=== PATIENT | female | born 1980 | race Caucasian/White ===

== ENCOUNTER 2023-10-18 06:00 | Inpatient (IN) | payer OTHER ==
[2023-10-18] MEDS: ELECTROLYTE-148 SOLN 500 ML IV ONE (06:20)
[2023-10-18 06:38] VITALS: BMI 35.0
[2023-10-18] MEDS: CITRIC ACID/SODIUM CITRATE 30 ML UNIT-DOSE CUP PO ONE (07:15)
[2023-10-18] MEDS: ELECTROLYTE-148 SOLN 1,000 ML IV SCH (07:21)
[2023-10-18] MEDS ORDERED: METOCLOPRAMIDE HCL INJECTION 10 MG/2 ML VIAL ONE (07:51)
[2023-10-18] MEDS ORDERED: OXYTOCIN 10 UNITS/ML VIAL ONE (07:51)
[2023-10-18] MEDS ORDERED: ceFAZolin SODIUM 1 GM VIAL ONE (07:51)
[2023-10-18] MEDS ORDERED: ONDANSETRON 4 MG/2 ML VIAL ONE (07:51)
[2023-10-18] MEDS ORDERED: KETOROLAC TROMETHAMINE 30 MG/1 ML VIAL ONE (07:51)
[2023-10-18] MEDS ORDERED: PHENYLEPHRINE HCL 10 MG/1 ML SINGLE DOSE VIAL ONE (07:52)
[2023-10-18] MEDS ORDERED: SODIUM CHLORIDE 0.9% P/F 10 ML VIAL IJ ONE (07:52)
[2023-10-18] MEDS ORDERED: morphine SULFATE/PF 1 MG/2 ML (2cc Syringe - QUVA) ONE (07:56)
[2023-10-18] MEDS ORDERED: FENTANYL CITRATE/PF 50 MCG/ML VIAL ONE (07:56)
[2023-10-18] MEDS ORDERED: IBUPROFEN 800 MG/8 ML IJ IVPB PRN (09:46)
[2023-10-18] MEDS ORDERED: ONDANSETRON 4 MG/2 ML VIAL IVPB PRN (09:46)
[2023-10-18] MEDS ORDERED: ACETAMINOPHEN INJECTION 100 ML IVPB ONE (10:32)
[2023-10-18] MEDS: ACETAMINOPHEN 1000 MG/100 ML BAG IVPB SCH (10:39)
[2023-10-18] MEDS ORDERED: OXYTOCIN 20 UNITS in 0.9% NS 20 UNIT/1,000 ML INFUS.BAG IV ONE (11:44)
[2023-10-18] MEDS: OXYTOCIN 20 UNITS in 0.9% NS 20 UNIT/1,000 ML INFUS.BAG IV SCH (11:50)
[2023-10-18] MEDS: CEFAZOLIN SODIUM 2 GM in DEXTROSE 5%-WATER 100 ML IVPB SCH (15:49)
[2023-10-18] MEDS: SENNOSIDES/DOCUSATE COMBO (SENNA PLUS) TABLET (UD) PO SCH (22:13)
[2023-10-19] MEDS: IBUPROFEN 600 MG TABLET (FP) PO PRN (04:34)
[2023-10-19 06:33] LABS: BASO % 0.3 % (0-2.0); HEMATOCRIT 27.9 % (32.4-45.2); HEMOGLOBIN 9.7 GM/dL (10.7-15.3); MCH 31.3 pg (25.7-33.7); MCHC 34.8 g/dl (32.0-36.0); MEAN CELL VOLUME 90.1 fl (80-96); MEAN PLT VOLUME 8.9 fl (7.5-11.1); MONO % 8.3 % (3.8-10.2); NEUT % 73.4 % (42.8-82.8); PLATELET COUNT 162 10^3/uL (134-434); RBC 3.09 M/mm3 (3.60-5.2); RDW 13.9 % (11.6-15.6); WHITE BLOOD COUNT 10.8 K/mm3 (4.0-10.0)
[2023-10-19] MEDS ORDERED: oxyCODONE HCL 5 MG TABLET PO PRN (08:00)
[2023-10-19] MEDS ORDERED: BISACODYL 10 MG SUPP.RECT RC PRN (09:46)
[2023-10-19] MEDS: ENOXAPARIN NA (PORCINE) 40 MG/0.4 ML DISP.SYRIN SQ SCH (10:32)
[2023-10-19] MEDS: ACETAMINOPHEN 325 MG TABLET (FP) PO SCH (10:33)
[2023-10-19] MEDS: DIPHTH,PERTUSS(ACELL),TET 0.5 ML DISP.SYRIN IM ONE (10:33)
[2023-10-19] MEDS: SIMETHICONE 80 MG TAB.CHEW (FP) PO PRN (14:08)
[2023-10-20 10:37] VITALS: BP 112/59; PULSE 69; RESP 18; TEMP 97.8
== END 2023-10-20 13:00 | disposition home or self-care (01) | DRG 540 ==
LOC: JLDR 06:00 → J3W 12:30
PROVIDERS: ADMIT Specialist; ATTEND Specialist
PROC: 0UN90ZZ Release Uterus, Open Approach (ICD-10-PCS; principal; 2023-10-18)
PROC: 10D00Z0 Extraction of Products of Conception, High, Open Approach (ICD-10-PCS; 2023-10-18)
DX: O34.218 Maternal care for other type scar from previous cesarean delivery (principal); N73.6 Female pelvic peritoneal adhesions (postinfective); Z3A.39 39 weeks gestation of pregnancy; Z37.0 Single live birth
CPT/HCPCS: 36415; 85025; 86780; 86850; 86900; 86901; 88307-TC; 90715; J0131